=== PATIENT | female | born 1950 | race Caucasian/White ===

== ENCOUNTER → 2023-01-31 08:05 | Outpatient (CLI) | payer MEDICARE, SELFPAY ==
--- NOTE | 2023-02-01 02:02 | DI.NM.S_ITS ---
DATE OF SERVICE: 01/31/2023 PROCEDURE: Exercise treadmill stress test without imaging. ORDERING PROVIDER: Shannon Erickson M.D. INDICATIONS: The patient is a 72-year-old female with poorly controlled hypertension and associated chest tightness. FINDINGS: 1. The patient was able to exercise for 6 minutes 12 seconds on a standard Jay protocol suggesting good exercise capacity with an ELENA of -7%, achieving 7.0 METs. 2. She had a blunted heart rate response to exercise with a resting heart rate of 57 BPM increasing to a maximum of 106 ppm (72% of her predicted maximal), likely due to taking her metoprolol in the morning, and this reduces the sensitivity of this test. She had a mild hypertensive blood pressure response with a resting blood pressure 150/80, increasing to a maximum of 190/100. 3. She had no chest pain or anginal symptoms. 4. The resting ECG shows sinus rhythm with normal ST segments. Unfortunately, peak exercise tracings are corrupted by motion artifact but tracings 1 minute into recovery show only slight upsloping ST depression which is nonspecific. There were no arrhythmias. IMPRESSION: 1. Probable normal treadmill study for ischemia although with reduced sensitivity because of a blunted heart rate response. She did have borderline ST-segment shifts. If there is a high degree of clinical concern for ischemic heart disease, an imaging stress test should be considered. 2. Good exercise capacity without angina or arrhythmias. Shaina Faith - WALTER/zahraa/kt doc#: [id number]/job#: [id number] dd: 01/31/2023 16:26:00 dt: 02/01/2023 01:55:00 DICTATING MD/COPIES TO: Andre Douglas MD; Shannon Erickson M.D. COPIES MNE: ADALID;
== END ==
PROVIDERS: PCP Nurse Practitioner Family; Referring Provider Nurse Practitioner Family; Visit Provider Nurse Practitioner Family
DX: R07.89 Other chest pain (principal); I10 Essential (primary) hypertension
CPT/HCPCS: 93017

== ENCOUNTER → 2024-07-03 12:32 | Outpatient (CLI) | payer MEDICARE, SELFPAY ==
--- NOTE | 2024-07-03 | PATH_ITS ---
Note [facility] Accession Number: [id number] TESTS RESULT FLAG UNITS REF RANGE LAB Clinician Provided Cytology Information No. of containers..01 Other (Miscellaneous) No. of containers..02 Previously Prepared Cytology Slide Source: LEFT THYROID NODULE DIAGNOSIS: LEFT THYROID NODULE BENIGN. B[place]ESDA CATEGORY II. SPECIMEN CONSISTS OF A MIXTURE OF MACRO- AND MICROFOLLICULAR CELLS, HEMOSIDERIN-LADEN MACROPHAGES, COLLOID, AND BLOOD. THIS PATTERN IS CONSISTENT WITH FOLLICULAR NODULAR DISEASE. Pathologist ICD10: 01 E04.1 Signed out by: Helen Collins MD, Pathologist NPI- [id number] Performed by: Farzad Ballard, [employer] Maker ([facility]) Gross description: 30 CC, COLORLESS, CLEAR RECIEVED: IN CYTOLYT WITH 6 ALCOHOL FIXED AND 6 QUICK STAINED SLIDES ALSO 1 RNA VIAL WILL ON 12-03-2024.VO /VDU 07/06/2024 1004 Local FLAG LEGEND: L-Low Normal,H-High Normal,LL-Alert Low,HH-Alert High <-Panic Low,>-Panic High,A-Abnormal,AA-Critical Abnormal Performed at: 01 [address] [facility], [place] [address] Nahid Gonzalez MD, Performed at: [address] [facility], [place], [place] [id number] MD Nahid Gonzalez MD Phone: [phone]
--- NOTE | 2024-07-03 12:34 | DI.US.S_ITS ---
PROCEDURE: US FINE NEEDLE ASPIRATION INDICATIONS: THYROID NODULE TECHNIQUE: The indications, alternatives, benefits, risks, and complications of the procedure were explained to the patient. Written informed consent was obtained and placed in the chart. The thyroid region was examined sonographically and a site was chosen for ultrasound guided percutaneous sampling. The skin was prepared and draped in the usual fashion, and anesthetized with 1% lidocaine infiltrated from the skin down to the thyroid gland. Multiple passes were then performed, with contents emptied into an appropriate pathology specimen container. A bandage was applied to the area of access at completion of the study. COMPARISON: None. FINDINGS: Location(s) of lesion(s) sampled: Left thyroid [place]: 25 and 22 gauge hypodermic needles. Number of passes: 6 total Medications: 1% lidocaine for local anaesthesia. Complications: None. IMPRESSION: Successful ultrasound-guided thyroid nodule fine needle aspiration, with cytology results pending. Please see chart below for management recommendations based on cytology results. [facility] ReportingRecommendationsNon-diagnostic* Repeat US-guided FNA, with on-site cytology evaluation if possible. * Repeated non-diagnostic nodules without high suspicion US features: close observation vs surgical consult. * Consider surgery if nodule has high suspicion US features, grows >20% in 2 dimensions on followup, or patient has clinical risk factors for malignancy. Benign* If nodule has high suspicion US features: repeat US and FNA within 12 months. * If nodule has low to intermediate suspicion US features: repeat US at 12-24 months. If nodule grows (20% increase in at least 2 dimensions, with minimal increase of 2 mm or >50% change in volume), or development of new suspicious US features, then repeat FNA or continue followup. * If nodule has very low suspicion US features: followup US at >24 months. Atypia of undetermined significance, follicular lesion of undetermined significanceRepeat FNA, molecular testing, followup US, or surgical consult.Follicular neoplasm, suspicious for follicular neoplasmSurgical consult; also consider molecular testing. Suspicious for malignancySurgical consult.MalignantSurgical consult. Dictated by: Guevara Otero M.D. on 07/03/2024 at 16:46 Approved by: Guevara Otero M.D. on 07/03/2024 at 16:47
== END ==
LOC: US 12:33
PROVIDERS: PCP Nurse Practitioner Family; Referring Provider Student in an Organized Health Care Education/Training Program; Visit Provider Student in an Organized Health Care Education/Training Program
DX: E04.1 Nontoxic single thyroid nodule (principal)
CPT/HCPCS: 10005